=== PATIENT | male | born 1980 | race Caucasian/White ===

== ENCOUNTER 2019-06-06 08:16 | Outpatient (CLI) | payer OTHER ==
--- NOTE | 2019-06-07 13:48 | MRI ---
MRI ABDOMEN WITH AND WITHOUT CONTRAST: HISTORY: Abnormal finding on recent ultrasound. COMPARISON: Ultrasound abdomen from 05/09/2019. FINDINGS: No significant pericardial fluid. No pleural effusion. Aortic contour is normal. Normal proximal small bowel rotation. No free fluid in the abdomen. There is a simple cyst in hepatic segment 5, measuring 5 mm, likely corresponding to the echogenic 5 mm focus on the ultrasound. There is a flash filling hemangioma in hepatic segment 5. No other abno rmal enhancing mass is appreciated. No intrahepatic or extrahepatic biliary dilatation. The spleen is unremarkable. The pancreas is unr emarkable. The adrenal glands are unremarkable. Small simple cyst, superior pole, left kidney, measuring 9 mm. No dilated loops of large or small bowel. Moderately prominent circumferential disk osteophyte at T1 2-L1. No significant hepatic steatosis. IMPRESSION: 1. Likely corresponding to the very small echogenic focus in the right liver seen on the prior ultra sound is a flash filling hemangioma in hepatic segment 5. 2. Small simple cyst, hepatic segment 5. 3. Small simple cyst, superior left renal cortex. 4. At T12-L1 there is a circumferential disk osteophyte complex causing some low grade effacement of the ventral cerebrospinal fluid space. 5. No acute inflammatory process within the abdomen. POS: OFF
== END 2019-06-06 08:17 | disposition home or self-care (01) ==
LOC: SCSMRI 08:16
PROVIDERS: ATTEND Internal Medicine Gastroenterology
DX: R93.89 Abnormal findings on diagnostic imaging of other specified body structures (principal); K76.89 Other specified diseases of liver; N28.1 Cyst of kidney, acquired
CPT/HCPCS: 74183